=== PATIENT | female | born 1980 | race Caucasian/White ===

== ENCOUNTER → 2018-10-27 | Outpatient (CLI) | payer MEDICARE, BC, OTHER | END | disposition home or self-care (01) | LOC: RADUSWWP 10-26 09:57 | PROVIDERS: ATTEND General Practice | DX: Z53.9 Procedure and treatment not carried out, unspecified reason (principal) ==

== ENCOUNTER 2021-10-23 19:19 | Emergency (ER) | payer MEDICARE, OTHER ==
[2021-10-23 19:28] VITALS: BP 134/94
[2021-10-23] MEDS ORDERED: IPRATROPIUM-ALBUTEROL 3 ML NEB INHALATION STA (19:36)
[2021-10-23] MEDS ORDERED: SODIUM CHLORIDE 0.9% 1,000 ML IV STA (19:36)
--- NOTE | 2021-10-23 19:43 | ED ---
SOB HPI - General Chief Complaint: Shortness of Breath Stated Complaint: NEGRO Time Seen by Provider: 10/23/21 19:22 Source: EMS, RN notes reviewed, Caregiver Mode of arrival: EMS - History of Present Illness Initial Comments: This is a 41-year-old female with a past medical history of autism who presents to the emergency department for shortness of breath. Patient is nonverbal and her guardian, Zelda, is at bedside providing the history. For the last 3 days, she has not been eating or drinking. She was given water earlier today, and then proceeded to throw up. She only threw up water. There was no phlegm or bile present. She then started to have difficulty breathing. She does have known asthma. Her guardian states that when she starts to get ill, she "goes downhill", very quickly. She is cared for by [facility], they came to evaluate her today and advised she go to the emergency department for evaluation. She was given prednisone and had a chest x-ray, however she only had one dose of the prednisone which they believe she later threw up and the results of the chest x-ray will not be available for 3 days. She is currently taking Bactrim which she started 2 days ago and she has also been getting albuterol breathing treatments at home. MD Complaint: shortness of breath Known History Of: asthma Associated Symptoms: nausea/vomiting - Related Data Home Medications Medication Instructions Recorded Confirmed Glycopyrrolate [Robinul] 1 mg PO BID@0800,199912/21/13 10/23/21 Acetaminophen [Acetaminophen 8 hr] 650 mg PO Q6H PRN 10/23/21 10/23/21 Albuterol Nebulized [Ventolin 2.5 mg INHALATION RT-Q6H PRN 10/23/21 10/23/21 Nebulized] Albuterol Sulfate 2 mg PO TID PRN 10/23/21 10/23/21 Ascorbic Acid [Vitamin C] 500 mg PO DAILY@159910/23/21 10/23/21 Cholecalciferol [Vitamin D3 (25 25 mcg PO DAILY@159910/23/21 10/23/21 Mcg = 1000 Iu)] Cranberry Fruit Extract [Cranberry] 500 mg PO DAILY@0800 10/23/21 10/23/21 L.acidoph,Paracasei, B.lactis 1 cap PO DAILY@0800 10/23/21 10/23/21 [Probiotic] Levonorgestrel And Ethiny 84/Ee7lo 1 tab PO DAILY@0800 10/23/21 10/23/21 Magnesium Hydroxide [Milk of 2,400 mg PO Q48H 10/23/21 10/23/21 Magnesia] Multivitamins, Thera [Multivitamin 1 tab PO DAILY@0800 10/23/21 10/23/21 (formulary)] OLANZapine [ZyPREXA] 10 mg PO HS@199910/23/21 10/23/21 OXcarbazepine [Trileptal] 300 mg PO TID 10/23/21 10/23/21 Sennosides/Docusate Sodium 1 tab PO DAILY@0800 10/23/21 10/23/21 [Senna-S 8.6-50 mg Tablet] Sulfamethoxazole/Trimethoprim 1 tab PO BID 10/23/21 10/23/21 [Bactrim DS 800-160 mg] Zinc 50 mg PO DAILY@1600 10/23/21 10/23/21 predniSONE [Deltasone] 40 mg PO DAILY 10/23/21 10/23/21 Allergies Allergy/AdvReac Type Severity Reaction Status Date / Time Penicillins Allergy Unknown Verified 10/23/21 20:45 Review of Systems ROS Statement: Those systems with pertinent positive or pertinent negative responses have been documented in the HPI. ROS Other: All systems not noted in ROS Statement are negative. Limitations: ROS unobtainable due to patients medical condition Past Medical History Additional Past Medical History / Comment(s): autism History of Any Multi-Drug Resistant Organisms: None Reported Additional Past Surgical History / Comment(s): unknown Past Psychological History: Anxiety Past Alcohol Use History: None Reported Past Drug Use History: None Reported General Exam Limitations: language barrier, physical limitation General appearance: alert Head exam: Present: atraumatic, normocephalic, normal inspection Respiratory exam: Present: wheezes (Diffuse wheezing that is audible with and without auscultation), other (Severe pectus carinatum deformity) Cardiovascular Exam: Present: regular rate, normal rhythm, normal heart sounds. Absent: systolic murmur, diastolic murmur, rubs, gallop, clicks Neurological exam: Present: alert Skin exam: Present: warm, dry, intact, normal color. Absent: rash Course Vital Signs 10/23/21 10/23/21 10/23/21 19:23 20:22 20:29 Temperature 98.9 F Pulse Rate 131 H 112 H 114 H Respiratory 18 Rate Blood Pressure 134/94 O2 Sat by Pulse 94 L Oximetry Medical Decision Making - Medical Decision Making This is a 41-year-old female who presents to the emergency department for difficulty breathing. Patient is nonverbal and all history is provided by her legal guardian. Duoneb and Decadron administered. Patient does have a decreased O2 saturation and is tachycardic on examination, which poses concern for a pulmonary embolism along with the shortness of breath. Will evaluate the risk on lab work, EKG, and chest x-ray. Chest x-ray revealed no acute cardiopulmonary process. Lab work does reveal an elevated D-dimer. CTA of the chest was then obtained and did not identify any signs of pulmonary embolism. Patient's wheezing was significantly reduced following the DuoNeb treatment. I discussed disposition with the patient's caregiver, and she advised that she has 24-hour care at home, and they're comfortable with her being discharged. [facility] will also see her on Tuesday (10/26). She will continue the antibiotic and prednisone prescription that she is already taking. Return precautions reviewed in depth, the patient is instructed to return to the emergency department with any new, worsening, or concerning symptoms. Patient's caregiver verbalized understanding. This case was discussed in detail with the attending ED physician. Presentation, findings, and treatment plan discussed in detail as well. - Lab Data Result diagrams: 10/23/21 19:48 10/23/21 19:48 Lab Results 10/23/21 10/23/21 10/23/21 Range/Units 19:48 19:48 19:48 WBC 7.9 (3.8-10.6) k/uL RBC 4.21 (3.80-5.40) m/uL Hgb 13.6 (11.4-16.0) gm/dL Hct 41.0 (34.0-46.0) % MCV 97.3 (80.0-100.0) fL MCH 32.3 (25.0-35.0) pg MCHC 33.2 (31.0-37.0) g/dL RDW 12.8 (11.5-15.5) % Plt Count 174 (150-450) k/uL MPV 7.1 Neutrophils % 92 % Lymphocytes % 4 % Monocytes % 3 % Eosinophils % 1 % Basophils % 0 % Neutrophils # 7.2 (1.3-7.7) k/uL Lymphocytes # 0.3 L (1.0-4.8) k/uL Monocytes # 0.2 (0-1.0) k/uL Eosinophils # 0.1 (0-0.7) k/uL Basophils # 0.0 (0-0.2) k/uL PT 9.6 (9.0-12.0) sec INR 0.9 (<1.2) APTT 21.1 L (22.0-30.0) sec D-Dimer 1.34 H (<0.60) mg/L FEU Sodium 132 L (137-145) mmol/L Potassium 4.6 (3.5-5.1) mmol/L Chloride 99 (98-107) mmol/L Carbon Dioxide 28 (22-30) mmol/L Anion Gap 5 mmol/L BUN 19 H (7-17) mg/dL Creatinine 0.65 (0.52-1.04) mg/dL Est GFR (CKD-EPI)AfAm >90 (>60 ml/min/1.73 sqM) Est GFR (CKD-EPI)NonAf >90 (>60 ml/min/1.73 sqM) Glucose 104 H (74-99) mg/dL Plasma Lactic Acid Sahil (0.7-2.0) mmol/L Calcium 8.4 (8.4-10.2) mg/dL Total Bilirubin 0.3 (0.2-1.3) mg/dL AST 25 (14-36) U/L ALT 12 (4-34) U/L Alkaline Phosphatase 66 (38-126) U/L Troponin I (0.000-0.034) ng/mL NT-Pro-B Natriuret Pep pg/mL Total Protein 6.6 (6.3-8.2) g/dL Albumin 3.7 (3.5-5.0) g/dL 10/23/21 10/23/21 10/23/21 Range/Units 19:48 19:48 19:48 WBC (3.8-10.6) k/uL RBC (3.80-5.40) m/uL Hgb (11.4-16.0) gm/dL Hct (34.0-46.0) % MCV (80.0-100.0) fL MCH (25.0-35.0) pg MCHC (31.0-37.0) g/dL RDW (11.5-15.5) % Plt Count (150-450) k/uL MPV Neutrophils % % Lymphocytes % % Monocytes % % Eosinophils % % Basophils % % Neutrophils # (1.3-7.7) k/uL Lymphocytes # (1.0-4.8) k/uL Monocytes # (0-1.0) k/uL Eosinophils # (0-0.7) k/uL Basophils # (0-0.2) k/uL PT (9.0-12.0) sec INR (<1.2) APTT (22.0-30.0) sec D-Dimer (<0.60) mg/L FEU Sodium (137-145) mmol/L Potassium (3.5-5.1) mmol/L Chloride (98-107) mmol/L Carbon Dioxide (22-30) mmol/L Anion Gap mmol/L BUN (7-17) mg/dL Creatinine (0.52-1.04) mg/dL Est GFR (CKD-EPI)AfAm (>60 ml/min/1.73 sqM) Est GFR (CKD-EPI)NonAf (>60 ml/min/1.73 sqM) Glucose (74-99) mg/dL Plasma Lactic Acid Sahil 1.4 (0.7-2.0) mmol/L Calcium (8.4-10.2) mg/dL Total Bilirubin (0.2-1.3) mg/dL AST (14-36) U/L ALT (4-34) U/L Alkaline Phosphatase (38-126) U/L Troponin I 0.025 (0.000-0.034) ng/mL NT-Pro-B Natriuret Pep 127 pg/mL Total Protein (6.3-8.2) g/dL Albumin (3.5-5.0) g/dL - EKG Data EKG Comments: Sinus tachycardia. Possible right ventricular conduction delay, possible septal UT of indeterminate age. Ventricular rate 126 bpm, AK interval 168 ms, QRS duration 73 ms, QTC 367 ms. When compared to previous EKG there are: previous EKG unavailable - Radiology Data Radiology results: report reviewed, image reviewed Disposition Clinical Impression: Asthma exacerbation Disposition: HOME SELF-CARE Instructions (If sedation given, give patient instructions): Asthma (ED), Bronchospasm (ED), Wheezing (ED) Additional Instructions: Return to the emergency department with any new, worsening, or concerning symptoms. Continue the antibiotic and prednisone that you were prescribed. [facility] and continue with at home breathing treatments. Is patient prescribed a controlled substance at d/c from ED?: No Referrals: Kevin Mejia MD [Primary Care Provider] - 1-2 days
[2021-10-23 20:15] LABS: Basophils % (A) 0 %; Eosinophils # (A) 0.1 k/uL (0-0.7); Eosinophils % (A) 1 %; HGB 13.6 gm/dL (11.4-16.0); Lymphocytes # (A) 0.3 k/uL (1.0-4.8); Lymphocytes % (A) 4 %; MCH 32.3 pg (25.0-35.0); MCHC 33.2 g/dL (31.0-37.0); MCV 97.3 fL (80.0-100.0); Mean Platelet Volume 7.1; Monocytes # (A) 0.2 k/uL (0-1.0); Monocytes % (A) 3 %; Neutrophils # (A) 7.2 k/uL (1.3-7.7); Neutrophils % (A) 92 %; Platelet Count 174 k/uL (150-450); RBC 4.21 m/uL (3.80-5.40); RDW 12.8 % (11.5-15.5); WBC 7.9 k/uL (3.8-10.6)
[2021-10-23 20:17] LABS: ALT 12 U/L (4-34); AST 25 U/L (14-36); African American GFR (CKD) >90 (>60 ml/min/1.73 sqM); Albumin 3.7 g/dL (3.5-5.0); Alkaline Phosphatase 66 U/L (38-126); Anion Gap 5 mmol/L; Blood Urea Nitrogen 19 mg/dL (7-17); Calcium 8.4 mg/dL (8.4-10.2); Carbon Dioxide 28 mmol/L (22-30); Chloride 99 mmol/L (98-107); Glucose 104 mg/dL (74-99); Non-African American GFR(CKD) >90 (>60 ml/min/1.73 sqM); Potassium 4.6 mmol/L (3.5-5.1); Sodium 132 mmol/L (137-145); Total Bilirubin 0.3 mg/dL (0.2-1.3); Total Protein 6.6 g/dL (6.3-8.2)
--- NOTE | 2021-10-23 20:53 | XR ---
EXAMINATION TYPE: XR chest 2V DATE OF EXAM: 10/23/2021 COMPARISON: 03/23/2013 HISTORY: Vomiting. Short of breath TECHNIQUE: 2 views FINDINGS: There is moderate thoracic dextroscoliosis. Lungs appear clear of infiltrate. No heart fail ure. Heart size is probably normal. No pleural effusion. IMPRESSION: Scoliotic deformity. No definite active cardiopulmonary disease. No adverse change compar ed to old exam. There is a possible infiltrate in the left lower lobe on old exam and it is not prese nt on today's exam.
[2021-10-23 21:00] LABS: INR 0.9 (<1.2); Prothrombin Time 9.6 sec (9.0-12.0)
[2021-10-23 21:47] LABS: Partial Thromboplastin Time 21.1 sec (22.0-30.0)
[2021-10-23] MEDS ORDERED: LORazepam 1 MG TAB PO STA (21:54)
[2021-10-23] MEDS ORDERED: DEXAMETHASONE SOD PHOSPHATE 10 MG/ML 1 ML VIAL IVP STA (22:30)
--- NOTE | 2021-10-23 23:25 | CT ---
EXAMINATION TYPE: CT chest angio for PE DATE OF EXAM: 10/23/2021 COMPARISON: 09/07/2011 HISTORY: Shortness of breath, tachycardia, elevated d-dimer CT DLP: 222.6 mGycm Automated exposure control for dose reduction was used. CONTRAST: Performed with IV Contrast, patient injected with 100ml mL of Isovue 370. Three-D postprocessed images. Images obtained from the thoracic inlet to the diaphragm with IV contra st. There is some atelectasis in the right paraspinal right lower lobe. Heart size is normal. There is a moderate thoracic dextroscoliotic deformity. There is no mediastinal adenopathy. There are no hilar masses. No pericardial effusion. No evidence of filling defect in the pulmonary arteries. IMPRESSION: No evidence of pulmonary embolism. There is some atelectasis in the right paraspinal right lower lobe which is overall not adversely changed compared to the old CT scan 10 years ago. Significant thoraci c scoliotic deformity.
[2021-10-24 00:17] VITALS: PULSE 95; RESP 22; TEMP 97.1
== END 2021-10-24 00:14 | disposition home or self-care (01) ==
LOC: EC 19:19
DX: J45.901 Unspecified asthma with (acute) exacerbation (principal); Z88.0 Allergy status to penicillin
CPT/HCPCS: 36415; 94640; 93005; 85379; 83880; 80053; 83605; 84484; 85025; 85610; 85730; 71046; 71275; 99285; 96374; 96361; J1100; Q9967

== ENCOUNTER 2023-12-04 21:53 | Emergency (ER) | payer MEDICARE, OTHER ==
[2023-12-04 22:24] VITALS: TEMP 97.8
--- NOTE | 2023-12-05 00:08 | ED ---
ENT HPI - General Chief complaint: ENT Stated complaint: Bloody nose Time Seen by Provider: 12/05/23 00:08 Source: patient, RN notes reviewed, Caregiver Mode of arrival: ambulatory Limitations: language barrier - History of Present Illness Initial comments: 43-year-old female with past medical history significant of autism presenting to the ER for evaluation of epistaxis. Earlier this evening staff at [facility] called caregiver and stated patient has been having a nosebleed for approximately 5 minutes. They state it has been persistent without relief. After about 10 minutes it had subsided. Caregiver states after hanging up the phone bleeding reoccurred. Patient is not on any blood thinners. Patient does have a history of epistaxis with occasionally in the wintertime due to dryness. They did use Afrin at that time for relief. Denies any injuries or traumas. No other complaints. - Related Data Home Medications Medication Instructions Recorded Confirmed Glycopyrrolate [Robinul] 1 mg PO BID@08,199912/21/13 10/23/21 Acetaminophen [Acetaminophen 8 hr] 650 mg PO Q6H PRN 10/23/21 10/23/21 Albuterol Nebulized [Ventolin 2.5 mg INHALATION RT-Q6H PRN 10/23/21 10/23/21 Nebulized] Albuterol Sulfate 2 mg PO TID PRN 10/23/21 10/23/21 Ascorbic Acid [Vitamin C] 500 mg PO DAILY@159910/23/21 10/23/21 Cholecalciferol [Vitamin D3 (25 25 mcg PO DAILY@159910/23/21 10/23/21 Mcg = 1000 Iu)] Cranberry Fruit Extract [Cranberry] 500 mg PO DAILY@79910/23/21 10/23/21 L.acidoph,Paracasei, B.lactis 1 cap PO DAILY@79910/23/21 10/23/21 [Probiotic] Levonorgestrel And Ethiny 84/Ee7lo 1 tab PO DAILY@79910/23/21 10/23/21 Magnesium Hydroxide [Milk of 2,400 mg PO Q48H 10/23/21 10/23/21 Magnesia] Multivitamins, Thera [Multivitamin 1 tab PO DAILY@79910/23/21 10/23/21 (formulary)] OLANZapine [ZyPREXA] 10 mg PO HS@199910/23/21 10/23/21 OXcarbazepine [Trileptal] 300 mg PO TID 10/23/21 10/23/21 Sennosides/Docusate Sodium 1 tab PO DAILY@0800 10/23/21 10/23/21 [Senna-S 8.6-50 mg Tablet] Sulfamethoxazole/Trimethoprim 1 tab PO BID 10/23/21 10/23/21 [Bactrim DS 800-160 mg] Zinc 50 mg PO DAILY@1600 10/23/21 10/23/21 predniSONE [Deltasone] 40 mg PO DAILY 10/23/21 10/23/21 Allergies Allergy/AdvReac Type Severity Reaction Status Date / Time Penicillins Allergy Unknown Verified 10/23/21 20:45 Review of Systems ROS Statement: Those systems with pertinent positive or pertinent negative responses have been documented in the HPI. ROS Other: All systems not noted in ROS Statement are negative. Past Medical History Additional Past Medical History / Comment(s): autism History of Any Multi-Drug Resistant Organisms: None Reported Additional Past Surgical History / Comment(s): unknown Past Psychological History: Anxiety Past Alcohol Use History: None Reported Past Drug Use History: None Reported General Exam Limitations: language barrier General appearance: alert, in no apparent distress Head exam: Present: atraumatic, normocephalic, normal inspection Eye exam: Present: normal appearance, PERRL, EOMI. Absent: scleral icterus, conjunctival injection, periorbital swelling ENT exam: Present: normal exam, mucous membranes moist, other (Dried blood under right nare. No active bleeding. No evidence of septal hematoma.) Neck exam: Present: normal inspection. Absent: tenderness, meningismus, lymphadenopathy Respiratory exam: Present: normal lung sounds bilaterally. Absent: respiratory distress, wheezes, rales, rhonchi, stridor Cardiovascular Exam: Present: regular rate, normal rhythm, normal heart sounds. Absent: systolic murmur, diastolic murmur, rubs, gallop, clicks Neurological exam: Present: alert, CN II-XII intact Skin exam: Present: warm, dry, intact, normal color. Absent: rash Course Vital Signs 12/04/23 22:12 Temperature 97.8 F Pulse Rate 119 H Respiratory 18 Rate O2 Sat by Pulse 95 Oximetry Medical Decision Making - Medical Decision Making Was pt. sent in by a medical professional or institution ([facility], [employer], urgent care, hospital, or group home...) When possible be specific @ -No Did you speak to anyone other than the patient for history (EMS, parent, family, police, friend...)? What history was obtained from this source @ -Caregiver providing HPI and past medical history in its entirety Did you review nursing and triage notes (agree or disagree)? Why? @ -I reviewed and agree with nursing and triage notes Were old charts reviewed (outside hosp., previous admission, EMS record, old EKG, old radiological studies, urgent care reports/EKG's, group home records)? Report findings @ -No old charts were reviewed Differential Diagnosis (chest pain, altered mental status, abdominal pain women, abdominal pain men, vaginal bleeding, weakness, fever, dyspnea, syncope, headache, dizziness, GI bleed, back pain, seizure, CVA, palpatations, mental health, musculoskeletal)? @ -Nasal foreign body, epistaxis, septal hematoma This list is not meant to be all-inclusive EKG interpreted by me (3pts min.). @ -None X-rays interpreted by me (1pt min.). @ -None done CT interpreted by me (1pt min.). @ -None done U/S interpreted by me (1pt. min.). @ -None done What testing was considered but not performed or refused? (CT, X-rays, U/S, labs)? Why? @ -None What meds were considered but not given or refused? Why? @ -None Did you discuss the management of the patient with other professionals (professionals i.e. [facility], [employer]OTOTYPE [employer]PENTER, lab, RT, psych nurse, social worker clinical, putter in, teacher, cra officer, case repairer)? Give summary @ -No Was smoking cessation discussed for >3mins.? @ -No Was critical care preformed (if so, how long)? @ -No Were there social determinants of health that impacted care today? How? (Homelessness, low income, unemployed, alcoholism, drug addiction, transportation, low edu. Level, literacy, decrease access to med. care, fdc, rehab)? @ -No Was there de-escalation of care discussed even if they declined (Discuss DNR or withdrawal of care, Hospice)? DNR status @ -No What co-morbidities impacted this encounter? (DM, HTN, Smoking, COPD, CAD, Cancer, CVA, ARF, Chemo, Hep., AIDS, mental health diagnosis, sleep apnea, morbid obesity)? @ -Autism Was patient admitted / discharged? Hospital course, mention meds given and rou te, prescriptions, significant lab abnormalities, going to OR and other pertinent info. @ -Discharge. 43-year-old female presented to ER with chief complaint of epistaxis. History and physical exam completed. Vitals stable. Patient in no signs of acute distress and nontoxic-appearing. No active bleeding on exam. There is dried blood on the right nare. No evidence of septal hematoma. Patie nt stable for discharge at this time. Patient discharged with a nose clamp if bleeding were to recur. Return parameters discussed. Patient discharged stable condition with follow-up to PCP. Caregiver verbally expressed understanding agreement care plan. Case discussed with ED attending, Dr. Pittman. Undiagnosed new problem with uncertain prognosis? @ -No Drug Therapy requiring intensive monitoring for toxicity (Heparin, Nitro, Insulin, Cardizem)? @ -No Were any procedures done? @ -No Diagnosis/symptom? @ -Epistaxis Acute, or Chronic, or Acute on Chronic? @ -Acute Uncomplicated (without systemic symptoms) or Complicated (systemic symptoms)? @ -Uncomplicated Side effects of treatment? @ -No Exacerbation, Progression, or Severe Exacerbation? @ -No Poses a threat to life or bodily function? How? (Chest pain, [place], [place], pneumonia, PE, COPD, DKA, ARF, appy, cholecystitis, CVA, Diverticulitis, Homicidal, Suicidal, threat to staff... and all critical care pts) @ -No Disposition Clinical Impression: Epistaxis Disposition: HOME SELF-CARE Condition: Stable Instructions (If sedation given, give patient instructions): Nosebleed (ED) Additional Instructions: Please follow-up with PCP. If bleeding were to recur please place nose clamp. You may also do 2 sprays of Afrin. In affected nostril and apply compression. Return to the ER for any new or worsening concerns. Is patient prescribed a controlled substance at d/c from ED?: No Referrals: Hernan Means MD [Primary Care Provider] - 1-2 days Time of Disposition: 00:08
[2023-12-05 00:56] VITALS: PULSE 102; RESP 22
== END 2023-12-05 00:21 | disposition home or self-care (01) ==
LOC: EC 21:53
DX: R04.0 Epistaxis (principal); Z88.0 Allergy status to penicillin
CPT/HCPCS: 99283